=== PATIENT | female | born 1970 | race Caucasian/White ===

== ENCOUNTER 2019-05-02 13:15 | Day surgery (SDC) | payer OTHER ==
[~2019-05-02 13:15] MED LIST: BUPIVACAINE 0.5%-EPI 1:200000 PF 30 ML VIAL ONE; LIDOCAINE OINTMENT 5% 35.44 GM TUBE ONE; LIDOCAINE-MPF 1% 30 ML VIAL ONE
[2019-05-02] MEDS ORDERED: LACTATED RINGERS 1,000 ML IV ONE (13:33)
--- NOTE | 2019-05-02 14:05 | ANESTHESIA ---
Pre-Anesthesia VS, & Labs - Diagnosis Screening for colonscopy, hemorrhoids - Procedure Colonscopy, hemorrhoidectomy Vital Signs: Temp Pulse Resp BP Pulse Ox 36.5 C 82 18 118/94 H 100 05/02/19 13:34 05/02/19 13:34 05/02/19 13:34 05/02/19 13:34 05/02/19 13:34 Height 5 ft 6 in Weight (kg) 75.9 kg - NPO >8 hours - Is Patient ?: Waiver signed - Lab Results Lab results reviewed: No Home Medications and Allergies Home Medications: Ambulatory Orders Sertraline [Zoloft] 100 mg PO DAILY 05/02/19 Sertraline [Zoloft] 100 mg PO DAILY 05/02/19 Allergies/Adverse Reactions: Allergies Allergy/AdvReac Type Severity Reaction Status Date / Time No Known Drug Allergies Allergy Verified 05/02/19 13:34 Anes History & Medical History - Anesthetic History Anesthesia Complications: reports: No previous complications Family history of Anesthesia Complications: Denies Family history of Malignant Hyperthermia: Denies - Medical History Cardiovascular: reports: None Pulmonary: reports: None Gastrointestinal: reports: Hemorrhoids Urinary: reports: None Neuro: reports: None Musculoskeletal: reports: None Endocrine/Autoimmune: reports: None Blood Disorders: reports: None Skin: reports: None Smoking Status: Never smoker Psychosocial: reports: No issues indicated Exam General: Alert, Oriented x3, Cooperative Dental: WNL Mouth Opening: Greater than 4 Fingerbreadths Mallampati classification: I Thyromental Distance: greater than 6 cm Respiratory: Lungs clear Cardiovascular: Regular rate Neurological: Normal speech Mental/Cognitive Status: Alert/Oriented X3, Normal for patient Cognitive Status: Within normal limits Plan Anesthesia Type: MAC Consent for Procedure(s) Verified and Reviewed: Yes Code Status: Attempt Resuscitation ASA classification: 1-Healthy patient Is this case an emergency?: No
[2019-05-02] MEDS ORDERED: CEFAZOLIN SODIUM IN 0.9 % NACL 2 GM/100 ML BAG IV ONE (14:14)
[2019-05-02] MEDS ORDERED: KETOROLAC 30 MG/ML VIAL IVP ONE (14:50)
[2019-05-02] MEDS ORDERED: PROPOFOL 200 MG/20 ML VIAL IVP ONE (14:50)
[2019-05-02] MEDS ORDERED: ONDANSETRON 4 MG/2 ML VIAL IVP ONE (14:50)
[2019-05-02] MEDS ORDERED: NEOSTIGMINE 1 MG/1 ML 10 ML MDV IVP ONE (14:50)
[2019-05-02] MEDS ORDERED: SEVOFLURANE 250 ML LIQUID INH ONE (14:50)
[2019-05-02] MEDS ORDERED: fentaNYL 100 MCG/2 ML VIAL IVP ONE (14:50)
[2019-05-02] MEDS ORDERED: ePHEDrine 50 MG/ML VIAL IVP ONE (14:50)
[2019-05-02] MEDS ORDERED: DEXAMETHASONE 4 MG/ML VIAL IVP ONE (14:50)
[2019-05-02] MEDS ORDERED: MIDAZOLAM 2 MG/2 ML VIAL IVP ONE (14:50)
[2019-05-02] MEDS ORDERED: GLYCOPYRROLATE 1 MG/5 ML VIAL IVP ONE (14:50)
[2019-05-02] MEDS ORDERED: ROCURONIUM 50 MG/5 ML VIAL IVP ONE (14:50)
[2019-05-02] MEDS ORDERED: LIDOCAINE-MPF 2% 5 ML VIAL IM ONE (14:50)
--- NOTE | 2019-05-02 15:23 | OPERATIVE REPORT ---
Operative Report - General Procedure Date: 05/02/19 Planned Procedure: Open hemorrhoidectomy Pre-Op Diagnosis: Prolapsed internal hemorrhoid with residual external skin tags Procedure Performed: 3 Column internal hemorrhoidectomy and excision of an external skin tag Post Op Diagnosis: Prolapsed internal hemorrhoids with residual external skin tags - Procedure Note Primary Surgeon: Iam Anesthesia Provider: MAREK Zuñiga Anesthesia Technique: General ET tube, Local Pathology: Portions of hemorrhoid tissue to pathology in formalin Estimated Blood Loss (mL): 10 Indications: Troublesome, bleeding and prolapsing internal hemorrhoids Findings: 2 columns of prolapasing internal hemorrhoids with a 3rd enlarged complex associated with a single external skin tag Complications: None apparent - Other Other Information/Narrative: We completed the colonoscopy which has been reported in a separate document. The patient remained under general endotracheal anesthesia and with continued with hemorrhoidectomy. Following infiltration with local anesthetic create a field block, a bivalve anal retractor was placed so that we could better visualize the origin of the internal hemorrhoids which were prolapsed. There was a very large complex at 6:00 in lithotomy position with a smaller complex at approximately 1:00 in lithotomy position. Both of these complexities were associated with prolapse although the one at 6:00 was significantly larger. At the 3:00 radian there was a third enlarged venous complex with engorgement and prolapse into the canal but not out of the anus itself. There was a single external skin tag associated with the largest complex at 6:00. The entire area was infiltrated with local anesthetic to both raise the veins off of the underlying muscle and to provide a field block. We began with the largest complex cyst o'clock. It was grasped and elevated. The LigaSure device was used to ligate the vein and remove it completely. This was passed from the table. We addressed the external skin tag again by elevating it and passing the LigaSure across its base. We checked both areas for hemostasis and there was no bleeding. We continued with the complex at 1:00. It was held firmly from the underlying muscle with a Isacc clamp. Again the LigaSure was used to divide the vein and liberated completely from the underlying tissue. The third hemorrhoid complex at 3:00 was treated in the same fashion it was quite a bit smaller but easily elevated off of the underlying muscle. Again the LigaSure device was passed across the base of this vein proximally and distally liberating it completely from surrounding structures. The entire anal canal was checked for hemostasis. It was packed gently with a Gelfoam roll coated with lidocaine ointment. All sponge, needle, and instrument counts were correct at the conclusion of the case. The patient was allowed to awaken from anesthesia without difficulty and taken to the postanesthesia care unit in good condition.
[2019-05-02] MEDS ORDERED: ONDANSETRON 4 MG/2 ML VIAL IVP PRN (15:29)
[2019-05-02] MEDS ORDERED: oxyCODONE 5 MG TABLET PO PRN (15:29)
[2019-05-02] MEDS ORDERED: HYDROmorphone 0.5 MG/0.5 ML SYRINGE IVP PRN (15:29)
[2019-05-02 15:50] VITALS: BP 123/84
== END 2019-05-02 13:16 | disposition home or self-care (01) ==
LOC: SDS 13:15
PROVIDERS: ATTEND Surgery
PROC: 0DJD8ZZ Inspection of Lower Intestinal Tract, Via Natural or Artificial Opening Endoscopic (ICD-10-PCS; principal; 2019-05-02 14:00)
PROC: 06BY3ZC Excision of Hemorrhoidal Plexus, Percutaneous Approach (ICD-10-PCS; 2019-05-02 14:00)
DX: Z12.11 Encounter for screening for malignant neoplasm of colon (principal); K64.4 Residual hemorrhoidal skin tags; K64.8 Other hemorrhoids
CPT/HCPCS: 45378; 46260; A9270; J3490; J7120